=== PATIENT | male | born 1975 | race Hispanic/Latino ===

== ENCOUNTER 2024-10-28 08:05 | Emergency (ER) | payer MEDICAID ==
[~2024-10-28] VITALS: Ht 170.2 cm; Wt 83.9 kg
--- NOTE | 2024-10-28 08:45 | ERN ---
General Chief Complaint: Shoulder Injury/Pain Stated Complaint: LEFT SHOULDER PAIN Time Seen by MD: 08:18 History of Present Illness Initial Comments Patient is 49-year-old male who presented to ED with severe pain in left shoulder after falling down this morning. Patient is in severe pain and holding his left elbow with right hand. He denies any other injuries, denies chest pain, shortness of breath, palpitations, nausea, vomiting. Allergies: Coded Allergies: Penicillins (Unverified Allergy, Unknown, 10/28/24) amoxicillin (Unverified Allergy, Unknown, 10/28/24) cephalexin (Unverified Allergy, Unknown, 10/28/24) sulfamethoxazole (Unverified Allergy, Unknown, 10/28/24) trimethoprim (Unverified Allergy, Unknown, 10/28/24) Home Meds Active Scripts Meloxicam (Meloxicam) 15 Mg Tablet, 15 MG PO DAILY for 5 Days, #5 TAB Prov:LIBRADO BERGERON MD 10/28/24 Past Medical History Past Medical History: Arthritis, Hypertension Medical History Other: PSORIATIC ARTHRITIS, PSORIASIS Past Surgical History: None Musculoskeletal: (+) joint pain Physical Exam General Appearance: (+) moderate distress Orientation: (+) alert, (+) oriented x 3; (-) disoriented, (-) other documentation Head/Face Trauma: No Respiratory: (+) chest non-tender, (+) well ventilated Heart: (+) regular Extremities: (+) other Extremities Comment left shoulder joint not in its anatomic location, probable dislocation MDM MDM: Differential diagnosis: Left anterior shoulder dislocation/rotator cuff injury on left Patient is 49-year-old gentleman who came to ED with severe pain in left shoulder after falling down this morning. Patient is in severe pain and shouting loudly in ED due to pain. X-ray left shoulder complete was ordered for dislocation and Ketoralac 15 mg IM, morphine 4 mg IV was started to control pain. X-ray showed left anterior shoulder dislocation. We reduced the shoulder dislocation in ER under sedation, repeat x-ray showed left shoulder joint in place. We will restart the patient with meloxicam 15 mg daily for 5 days. Advised to follow up with PCP, Orthopedics in 1-2 weeks. ED Course Orders Procedure Category Date Status Time Ketorolac PHA 10/28/24 Complete Tromethamine 15mg/Ml 08:30 Shoulder Comp 2+Vws Lt RAD 10/28/24 Resulted 08:21 Morphine 4mg Syg PHA 10/28/24 Complete (Morphine 4mg Syg) 09:00 Ketamine 50mg/Ml PHA 10/28/24 Complete Syringe (Ketamine 10:00 Shoulder Ltd 1vw Lt RAD 10/28/24 Taken 10:04 Current Medications Medications (Trade) Dose Ordered Sig/Myriam Route PRN Reason Start Time Stop Time Status Last Admin Dose Admin Ketamine HCl (ketaMINE 50MG/ ML SYRINGE) 85 mg ONCE ONCE IV 10/28/24 10:00 10/28/24 10:01 DC 10/28/24 09:58 Ketorolac Tromethamine (toRADol) 15 mg ONCE ONCE IM 10/28/24 08:30 10/28/24 08:31 DC 10/28/24 09:32 Morphine Sulfate (morPHINE 4MG SYG) 4 mg ONCE ONCE IVP 10/28/24 09:00 10/28/24 09:01 DC 10/28/24 09:32 Vital Signs Date Time Temp Pulse Resp B/P (MAP) Pulse Ox O2 Delivery O2 Flow Rate FiO2 10/28/24 11:12 98.1 57 12 153/80 96 Room Air* 0 10/28/24 09:40 98.1 59 20 172/94 96 Room Air* 0 10/28/24 08:13 99.0 59 16 199/94 96 Room Air* 0 10/28/24 08:07 99.0 60 16 199/94 96 Room Air 0 Joint Reduction Joint Reduction : Joint Reduction Site: shoulder (L) Conscious Sedation: Yes Reduction Attempts: 1 Pre-Procedure NV Exam: Yes Post-Procedure NV Exam: Yes post joint reduction film: joint reduced Progress Patient had a moderate sedation with ketamine. Good affect. Scapular manipulation and external rotation applied. Joint reduced with no complications. Performed by me and the resident. Placed in a sling Total time 5 minutes DX & DISP Disposition: Discharge Departure Impression: Primary Impression: Dislocation of left shoulder joint Critical Time: 30 minutes Condition: Stable Scripts Meloxicam (Meloxicam) 15 Mg Tablet 15 MG PO DAILY for 5 Days, #5 TAB Prov: LIBRADO BERGERON MD 10/28/24 Additional Instructions: You had Left anterior shoulder dislocation. We reduced it in ER under sedation with ketamine 85 mg IV once. Repeat x-ray showed shoulder joint in anatomic position. We will discharge you with meloxicam 15 mg once daily for 5 days, use Tylenol as needed. Do not remove your shoulder sling for at least 3 days. After 3 days start shoulder stretching exercises. Follow-up with PCP in 3-5 days, follow up with Orthopedics in 1-2 weeks. Referrals: SELF,REFERRAL (PCP) RENETTA CARVAJAL DO I performed a substantive portion of the visit. I have reviewed and personally made and approve the management plan that is documented in the notes by myself with RENATA/resident. I acknowledged full responsibility for the patient's management plan. LIBRADO BERGERON MD Oct 28, 2024 08:45 ANATOLY ROBBINS DO Oct 28, 2024 12:11
--- NOTE | 2024-10-28 09:03 | HMCIMG ---
EXAM: CR left shoulder, 2 View. CLINICAL HISTORY: INJURY, DISLOCATION COMPARISON: None provided. FINDINGS: There is anterior dislocation of the humeral head relative to the glenoid fossa. There is no displaced fracture appreciated. There is no acute abnormality within the visualized chest. IMPRESSION: 1. Anterior dislocation of the humeral head. /[place]
--- NOTE | 2024-10-28 10:00 | NUR ---
sholder reduction started
--- NOTE | 2024-10-28 10:02 | NUR ---
prasad in place
--- NOTE | 2024-10-28 10:30 | NUR ---
pt back to baseline
--- NOTE | 2024-10-28 10:45 | NUR ---
xray confirmation placement
[2024-10-28] MEDS ORDERED: MELO-108 PO (11:04)
--- NOTE | 2024-10-28 11:11 | NUR ---
providing edication and follow up instruction
[2024-10-28 11:12] VITALS: BP 153/80; PULSE 57; RESP 12; TEMP 98.1; O2SAT 96
--- NOTE | 2024-10-28 12:01 | HMCIMG ---
EXAM: CR left Shoulder, 1 View. CLINICAL HISTORY: shoulder disclocation reduction COMPARISON: Radiograph from earlier today. FINDINGS: The glenohumeral joint is now anatomically aligned. Hill-Sachs impaction fracture of the lateral aspect of the humeral head. The acromioclavicular joint remains anatomically aligned. No abnormality within the visualized chest. IMPRESSION: 1. Glenohumeral joint now anatomically aligned post-reduction. 2. Hill-Sachs impaction fracture of the lateral humeral head. /[place]
== END 2024-10-28 11:18 | disposition home or self-care (01) ==
LOC: EDH 08:05
DX: S43.015A Anterior dislocation of left humerus, initial encounter (principal); I10 Essential (primary) hypertension; M19.90 Unspecified osteoarthritis, unspecified site; Z79.1 Long term (current) use of non-steroidal anti-inflammatories (NSAID); Z88.0 Allergy status to penicillin; Z88.1 Allergy status to other antibiotic agents; Z88.2 Allergy status to sulfonamides; W18.39XA Other fall on same level, initial encounter; Y93.89 Activity, other specified; Y92.89 Other specified places as the place of occurrence of the external cause; Y99.8 Other external cause status
CPT/HCPCS: 99285; 23650; 96374; 73020; 73030; 96372; J1885; J2270; J3490

== ENCOUNTER 2024-12-16 12:31 | Emergency (ER) | payer MEDICAID ==
[~2024-12-16] VITALS: Ht 170.2 cm; Wt 77.1 kg
[~2024-12-16 12:31] MED LIST: MELO-108 PO
--- NOTE | 2024-12-16 12:39 | ERN ---
ED Note History of Present Illness Stated Complaint: LEFT SHOULDER PAIN Chief Complaint: Shoulder Injury/Pain Time Seen by MD: 12:34 Dictation: PATIENT IS A 49-YEAR-OLD MALE HERE WITH A HISTORY OF PRIOR LEFT SHOULDER DISLOCATION. HE STATES HE DID THIS THREE MONTHS AGO WHEN IT WAS REDUCED. HE STATES TODAY HE WAS WORKING ON A VEHICLE WHEN HE FELT THE SAME KIND OF PAIN TO HIS LEFT SHOULDER. MOTION SECONDARY TO PAIN. HE STATES HE WAS ROLLING UP A WINDOW ON HIS CAR WHEN HE FELT THE SHOULDER DISLOCATE. Allergies: Coded Allergies: Penicillins (Unverified Allergy, Unknown, 10/28/24) amoxicillin (Unverified Allergy, Unknown, 10/28/24) cephalexin (Unverified Allergy, Unknown, 10/28/24) sulfamethoxazole (Unverified Allergy, Unknown, 10/28/24) trimethoprim (Unverified Allergy, Unknown, 10/28/24) Home Meds Active Scripts Meloxicam (Meloxicam) 15 Mg Tablet, 15 MG PO DAILY for 5 Days, #5 TAB Prov:LIBRADO BERGERON MD 10/28/24 Past Medical History Past Medical History: Arthritis, Hypertension Additional Past Medical Hx: PSORIATIC ARTHRITIS, PSORIASIS Surgical History: None RN Note Reviewed/Agreed w/PFSH: Yes Review of System Dictation CONSTITUTIONAL: NEGATIVE EXCEPT FOR HPI HEAD/FACE: NEGATIVE EXCEPT FOR HPI EENT: NEGATIVE EXCEPT FOR HPI RESPIRATORY: NEGATIVE EXCEPT FOR HPI GASTROINTESTINAL/ABDOMINAL: NEGATIVE EXCEPT FOR HPI GENITOURINARY: NEGATIVE EXCEPT FOR HPI MUSCULOSKELETAL: NEGATIVE EXCEPT FOR HPI LEFT SHOULDER PAIN WITH DECREASED RANGE OF MOTION INTEGUMENTARY: NEGATIVE EXCEPT FOR HPI NEUROLOGICAL/PSYCH: NEGATIVE EXCEPT FOR HPI HEMATOLOGIC/LYMPHATIC: NEGATIVE EXCEPT FOR HPI ALL SYSTEMS NEGATIVE, EXCEPT NOTED ABOVE. 13 POINT REVIEW OF SYSTEMS ASSESSED AND ALL NEGATIVE EXCEPT FOR ABOVE. Initial Vital Sign VS Vital Signs Date Time Temp Pulse Resp B/P (MAP) Pulse Ox O2 Delivery O2 Flow Rate FiO2 12/16/24 12:32 98.4 63 20 183/98 98 Room Air 0 12/16/24 16:00 21 Physical Exam Dictation VITAL SIGNS REVIEWED GENERAL APPEARANCE: ALERT, ORIENTED X 3, N MODERATE ACUTE DISTRESS, WELL DEVELOPED, NOURISHED. HEAD AND FACE: NON-TRAUMATIC. EYES: PERRL, PINK CONJUNCTIVAS, EYELID NO TRAUMA, ANTERIOR CHAMBER WITH ARCUS SENILIS. EARS: PINNAS INTACT AND NO SIGNS OF TRAUMA OR ERYTHEMA EAR CANALS CLEAR AND NO DISCHARGE TM NO ERYTHEMA NOSE: NO DISCHARGE, NO BLEEDING. OROPHARYNX: MOUTH NORMAL, TONGUE PINK, PHARYNX CLEAR,NO ERYTHEMA, TONSILS NO EXUDATES, NO ABSCESSES NOTED, MUCOUS MEMBRANE MOIST NECK: SUPPLE, NON-TENDER, NO THYROMEGALY, NO MASSES, NO JVD, NO BRUITS BREAST:DEFERRED CHEST:NO TENDERNESS, NO CREPITUS, NO PARADOXICAL MOVEMENT, NO RETRACTIONS LUNGS:CLEAR, WELL-VENTILATED, SYMMETRIC, NO RALES, NO WHEEZING, NO RHONCHI, NO STRIDOR, GOOD BREATH SOUNDS BILATERALLY HEART: REGULAR RATE, REGULAR RHYTHM, NO MURMUR, NO GALLOPS VASCULAR: NO PERIPHERAL EDEMA, ABDOMEN: SOFT, POSITIVE BOWEL SOUNDS, NONDISTENDED, NO GUARDING, NONTENDER, NO REBOUND, NO MASSES NO HEPATOMEGALY, NO SPLENOMEGALY, NO ALBERTO'S SIGN, NO HERNIAS. RECTAL: DEFERRED GENITAL: DEFERRED NEUROLOGICAL: NORMAL SPEECH, MOTOR FUNCTION INTACT, SENSORY FUNCTION INTACT MUSCULOSKELETAL: NECK NONTENDER, FULL RANGE OF MOTION, BACK NONTENDER, FULL RANGE OF MOTION, EXTREMITIES: LEFT ANTERIOR SHOULDER FULLNESS WITH DECREASED RANGE OF MOTION ARM. SKIN: COLOR PINK, DRY, NO TURGOR, NO RASH, NO LACERATIONS, NO ABRASIONS, NO CONTUSIONS. LYMPHATIC: DEFERRED Results (Laboratory/Radiology) Laboratory/Radiology PATIENT: DANIELLE MEJIA JR. MR#: [id number] : 1975 SEX: M AGE: 49 LOCATION: [facility] ORDER 1239 STATUS: [facility] REPORT#: [id number] SERVICE 1238 REASON: ANTERIOR SHOULDER PAIN WITH DECREASED RANGE OF MOTION AFTER WORKING THIS MO ORDERING PHYSICIAN: ALBERT ALLRED CLAIM APPROVER PROCEDURE: SHOL 2V LT - SHOULDER COMP 2+VWS LT EXAM: CR right Shoulder, 2 View. CLINICAL HISTORY: ANTERIOR SHOULDER PAIN WITH DECREASED RANGE OF MOTION AFTER WORKING THIS MO COMPARISON: None provided. FINDINGS: Anterior, inferior dislocation of the humeral head relative to the glenoid fossa with impaction of the superior lateral aspect of the head upon the inferior lip of the glenoid. There is likely an impaction type fracture at the superior lateral aspect of the humeral head. Acromioclavicular joint remains anatomically aligned. IMPRESSION: 1. Anterior, inferior glenohumeral dislocation with likely impaction fracture of the superior lateral humeral head. /[place] 1640/ADEQUATE REDUCTION OF LEFT SHOULDER. QUESTIONABLE HUMERAL HEAD FRACTURE PATIENT IN IMMOBILIZER Labs Reviewed?: Yes ED Course ED Course Orders Procedure Category Date Status Time Shoulder Comp 2+Vws Lt RAD 12/16/24 Resulted 12:38 Saline Lock Iv CPOE 12/16/24 Transmitted 15:27 Ketorolac PHA 12/16/24 Complete Tromethamine 30mg/Ml 15:30 Morphine 4mg Syg PHA 12/16/24 Complete (Morphine 4mg Syg) 15:30 Ondansetron 4mg Inj PHA 12/16/24 Complete (Zofran 4mg Inj) 15:30 Shoulder Immobilizer FRANK 12/16/24 In Process 15:59 Shoulder Ltd 1vw Lt RAD 12/16/24 Taken 15:59 Current Medications Medications (Trade) Dose Ordered Sig/Myriam Route PRN Reason Start Time Stop Time Status Last Admin Dose Admin Ketorolac Tromethamine (toRADol) 30 mg ONCE ONCE IVP 12/16/24 15:30 12/16/24 15:34 DC 12/16/24 15:49 Morphine Sulfate (morPHINE 4MG SYG) 4 mg ONCE ONCE IVP 12/16/24 15:30 12/16/24 15:34 DC 12/16/24 15:49 Ondansetron HCl (zoFRAN 4MG INJ) 4 mg ONCE ONCE IVP 12/16/24 15:30 12/16/24 15:34 DC 12/16/24 15:49 Vital Signs Date Time Temp Pulse Resp B/P (MAP) Pulse Ox O2 Delivery O2 Flow Rate FiO2 12/16/24 16:00 57 18 142/77 100 Room Air* 0 21 12/16/24 12:32 98.4 63 20 183/98 98 Room Air 0 1640/SHOULDER IMMOBILIZER IN PLACE POST REDUCTION. NEUROVASCULAR CMS INTACT POST REDUCTION PATIENT DISCHARGED HOME TO FOLLOW UP WITH ORTHOPEDICS IN THE NEXT 2-3 DAYS. INSTRUCTIONS TO NO WEIGHT-BEARING LEFT ARM UNTIL CLEARED BY ORTHO. Medical Decision Making MDM MEDICAL DISCHARGE MAKING BASED ON X-RAY OF LEFT SHOULDER. X-RAY DEMONSTRATED A POSSIBLE HUMERAL HEAD FRACTURE WITH DISLOCATION DISLOCATION WAS REDUCED WITH A REPEAT X-RAY DEMONSTRATING ADEQUATE POSITION AND ALIGNMENT PATIENT DISCHARGED HOME WITH SLING AND INSTRUCTIONS TO NOT WEIGHT BEAR OR WORK WITH LEFT ARM UNTIL CLEARED BY ORTHOPEDICS NEUROVASCULAR CMS INTACT TO LEFT HAND. Procedure Procedure Dictation: 1600/PROCEDURE EXPLAINED TO PATIENT HE AGREED TO PROCEED IV TO RIGHT ARM AND TORADOL 30 WAS GIVEN IV PUSH PATIENT THEN RECEIVED MORPHINE 4 MG WITH ZOFRAN FOR IV PUSH ONCE THER WAS ADEQUATE ANALGESIA LEFT SHOULDER DISLOCATION WAS REDUCED WITH TRACTION AND ROTATION EXTERNALLY. REDUCTION WAS FELT. PATIENT NO LONGER HAS A ANTERIOR FULLNESS NEUROVASCULAR CMS INTACT TO LEFT HAND AND WE WILL FOLLOW UP WITH POSTREDUCTION FILM. PATIENT TOLERATED WELL DX & DISP Disposition: Discharge Departure Impression: Primary Impression: Dislocation of left shoulder joint Additional Impression: Fracture of humeral head, left, closed Condition: Stable Scripts Ibuprofen (Ibuprofen 800 mg Tab) 800 Mg Tab 800 MG PO Q8H PRN for fever or pain, #30 TAB 0 Refills Prov: ALBERT ALLRED 12/16/24 Additional Instructions: FOLLOW-UP WITH PRIMARY CARE PROVIDER IN 1 TO 2 DAYS. TAKE MEDICATIONS DIRECTED HERE IN THE EMERGENCY ROOM. OKAY TO CONTINUE HOME MEDICATIONS UNLESS OTHERWISE DISCUSSED DURING YOUR VISIT IN THE EMERGENCY ROOM TODAY. RETURN TO YOUR NEAREST EMERGENCY ROOM IF SYMPTOMS WORSEN OR IF THERE IS NO IMPROVEMENT. CALL 911 IF YOU NEED IMMEDIATE ASSISTANCE. TAKE TYLENOL OR MOTRIN [id number] NEEDED AND IF NO CONTRAINDICATIONS ARE PRESENT. INCREASE ORAL HYDRATION. A WOUND CULTURE OR URINE CULTURE WAS ORDERED HERE IN THE EMERGENCY ROOM DEPARTMENT PLEASE FOLLOW-UP WITH PRIMARY CARE PROVIDER AND ADVISE THEM TO GET REPEAT PORTS FROM OUR FACILITY. IF YOU HAD ANY RONAN WRAP/SPLINTS THAT WERE APPLIED HERE, PLEASE DO NOT REMOVE THEM UNTIL YOU SEE YOUR PRIMARY CARE OR SPECIALTY. SLING AND NO WEIGHT-BEARING TO LEFT ARM UNTIL CLEARED BY ORTHOPEDICS. CALL FOR AN APPOINTMENT TOMORROW. COOL COMPRESSES TO LEFT SHOULDER THREE TO 4 TIMES A DAY. TAKE IBUPROFEN WITH FOOD NEEDED FOR PAIN. Referrals: SELF,REFERRAL (PCP) DILIP YADAV MD Time of Disposition: 16:48 I have reviewed the case, and I agree with, Diagnosis and Plan ALBERT ALLRED Dec 16, 2024 12:39
--- NOTE | 2024-12-16 14:11 | HMCIMG ---
EXAM: CR right Shoulder, 2 View. CLINICAL HISTORY: ANTERIOR SHOULDER PAIN WITH DECREASED RANGE OF MOTION AFTER WORKING THIS MO COMPARISON: None provided. FINDINGS: Anterior, inferior dislocation of the humeral head relative to the glenoid fossa with impaction of the superior lateral aspect of the head upon the inferior lip of the glenoid. There is likely an impaction type fracture at the superior lateral aspect of the humeral head. Acromioclavicular joint remains anatomically aligned. IMPRESSION: 1. Anterior, inferior glenohumeral dislocation with likely impaction fracture of the superior lateral humeral head. /[place]
[2024-12-16] MEDS ORDERED: IBUP-2077 PO (16:49)
[2024-12-16 17:11] VITALS: BP 136/76; PULSE 63; RESP 16; TEMP 98.4; O2SAT 98
--- NOTE | 2024-12-16 17:13 | NUR ---
SHOULDER IMMOBILIZER TO LEFT ARM, TOLERATED WELL, ARM SLING IN PLACE
--- NOTE | 2024-12-16 18:04 | HMCIMG ---
EXAM: CR Left Shoulder, 2 View. CLINICAL HISTORY: LEFT SHOULDER STATUS POST REDUCTION COMPARISON: None provided. FINDINGS: BONES: No acute fracture or aggressive appearing osseous lesion. JOINTS: No dislocation. The joint spaces are normal. SOFT TISSUES: The soft tissues are unremarkable. IMPRESSION: No acute abnormality evident on examination of the right shoulder. No acute fracture or dislocation. /[place]
== END 2024-12-16 17:43 | disposition home or self-care (01) ==
LOC: EDH 12:31
DX: S43.005A Unspecified dislocation of left shoulder joint, initial encounter (principal); S42.292A Other displaced fracture of upper end of left humerus, initial encounter for closed fracture; I10 Essential (primary) hypertension; Z88.0 Allergy status to penicillin; Z88.1 Allergy status to other antibiotic agents; Z88.2 Allergy status to sulfonamides; Z79.1 Long term (current) use of non-steroidal anti-inflammatories (NSAID); Z79.899 Other long term (current) drug therapy; X58.XXXA Exposure to other specified factors, initial encounter; Y93.89 Activity, other specified; Y92.89 Other specified places as the place of occurrence of the external cause; Y99.8 Other external cause status
CPT/HCPCS: 99284; 23650; 96374; 96375; 73020; 73030; J1885; J2405; J2270